=== PATIENT | female | born 1990 | race American Indian/Alaskan Native ===

== ENCOUNTER 2017-06-15 17:03 | Emergency (ER) | payer SELFPAY ==
[2017-06-15 17:42] VITALS: BP 122/63
[2017-06-15] MEDS ORDERED: MOTRIN PO ONE (20:03)
--- NOTE | 2017-06-15 20:23 | Emergency Department Report ---
ED Extremity Problem HPI - General Chief complaint: Extremity Problem,Nontraumatic Stated complaint: LEFT FOOT PAIN Time Seen by Provider: 06/15/17 19:38 Source: patient Mode of arrival: Ambulatory Limitations: No Limitations - History of Present Illness Initial comments: 27-year-old female past medical history obesity presents with complaint of 3 weeks of left-sided heel and ankle discomfort. Patient states she stands on her feet at work for prolonged periods of time. States that aching is worse at the end of the day. Denies any direct trauma below or inversion injury to left ankle. Describes pain that radiates from left heel to left ankle. Patient is ambulatory without assistance. Patient is awake alert and oriented 3 fully lucid. Adamantly denies any incident of injury over the last 3 weeks. Denies any changes on skin near her ankle. Denies any calf swelling control use or any previous history of DVT PE or recent travel. MD Complaint: extremity pain, extremity swelling Onset/Timin Location: left, lower extremity (left ankle) History of Same: Yes Severity scale (0 -10): 5 Quality: aching Consistency: intermittent Improves with: nothing - Related Data Previous Rx's Medication Instructions Recorded Last Taken Type Ibuprofen [Motrin] 600 mg PO Q8H PRN #15 tablet 06/15/17 Unknown Rx Allergies Allergy/AdvReac Type Severity Reaction Status Date / Time No Known Allergies Allergy Unverified 06/15/17 17:39 ED Review of Systems ROS: Stated complaint: LEFT FOOT PAIN Other details as noted in HPI Constitutional: denies: chills, fever Eyes: denies: eye pain, eye discharge, vision change ENT: denies: ear pain, throat pain Respiratory: denies: cough, shortness of breath, wheezing Cardiovascular: denies: chest pain, palpitations Endocrine: no symptoms reported Gastrointestinal: denies: abdominal pain, nausea, diarrhea Genitourinary: denies: urgency, dysuria, discharge Musculoskeletal: as per HPI. denies: back pain, joint swelling, arthralgia Skin: denies: rash, lesions Neurological: denies: headache, weakness, paresthesias Psychiatric: denies: anxiety, depression Hematological/Lymphatic: denies: easy bleeding, easy bruising ED Past Medical Hx - Past Medical History Previous Medical History?: No - Surgical History Past Surgical History?: No - Social History Smoking Status: Never Smoker Substance Use Type: None - Medications Home Medications: Home Medications Medication Instructions Recorded Confirmed Last Taken Type Ibuprofen [Motrin] 600 mg PO Q8H PRN #15 tablet 06/15/17 Unknown Rx ED Physical Exam - General Limitations: No Limitations General appearance: alert, in no apparent distress - Head Head exam: Present: atraumatic, normocephalic - Eye Eye exam: Present: normal appearance, PERRL, EOMI - ENT ENT exam: Present: mucous membranes moist - Neck Neck exam: Present: normal inspection - Respiratory Respiratory exam: Present: normal lung sounds bilaterally. Absent: respiratory distress - Cardiovascular Cardiovascular Exam: Present: regular rate, normal rhythm. Absent: systolic murmur, diastolic murmur, rubs, gallop - GI/Abdominal GI/Abdominal exam: Present: soft, normal bowel sounds - Extremities Exam Extremities exam: Present: normal inspection - Expanded Lower Extremity Exam Left Hip exam: Present: normal inspection, full ROM Upper Leg exam: Present: normal inspection, full ROM Knee exam: Present: normal inspection, full ROM Lower Leg exam: Present: normal inspection, full ROM Ankle exam: Present: normal inspection (no erythema and no clinical signs of cellulitis overlying ankle), full ROM (dorsi and plantarflexion clinically intact) Foot/Toe exam: Present: normal inspection, full ROM Neuro vascular tendon exam: Present: no vascular compromise (distal dorsalis pedis and posterior tibial pulses intact) Gait: Positive: observed and normal 1 - She states she has discomfort here - Back Exam Back exam: Present: normal inspection - Neurological Exam Neurological exam: Present: alert, oriented X3, CN II-XII intact, normal gait - Psychiatric Psychiatric exam: Present: normal affect, normal mood - Skin Skin exam: Present: warm, dry, intact, normal color. Absent: rash ED Course Vital Signs 06/15/17 06/15/17 17:39 20:35 Temperature 98.7 F Pulse Rate 55 L Respiratory 16 18 Rate Blood Pressure 122/63 O2 Sat by Pulse 100 Oximetry ED Medical Decision Making - Medical Decision Making A/P: Left ankle/heel pain/plantar fasciitis 1-Motrin when necessary 2-RICEtherapy, Caio wrap 3-x-ray shows some mild calcaneal spurring but no other abnormalities follow-up with podiatry, left lower extremity has good pulses and good sensation 4- I educated patient on signs and symptoms and management of plantar fasciitis Critical care attestation.: If time is entered above; I have spent that time in minutes in the direct care of this critically ill patient, excluding procedure time. ED Disposition Clinical Impression: Plantar fasciitis of left foot Left ankle pain Qualifiers: Chronicity: acute Qualified Code(s): M25.572 - Pain in left ankle and joints of left foot Disposition: DC- TO HOME OR SELFCARE Is pt being admited?: No Does the pt Need Aspirin: No Condition: Stable Instructions: RICE Therapy (ED), Plantar Fasciitis (ED) Prescriptions: Ibuprofen [Motrin] 600 mg PO Q8H PRN #15 tablet PRN Reason: Pain Referrals: [facility] [Provider Group] - 3-5 Days TREVOR HUSSEIN DPM [Staff Physician] - 3-5 Days Forms: Accompanied Note, Work/School Release Form(ED) Time of Disposition: 21:06
--- NOTE | 2017-06-15 20:58 | XRay Report ---
FINAL REPORT EXAM: XR ANKLE 3+V LT HISTORY: left ankle pain 3 weeks TECHNIQUE: Three views of the left ankle PRIORS: None. FINDINGS: There is no evidence of acute fracture. There is no evidence of joint dislocation. There is some mild dorsal spurring at the talonavicular joint. IMPRESSION: There is no acute abnormality identified.
== END 2017-06-15 21:20 | disposition home or self-care (01) ==
LOC: ED 17:03
DX: M72.2 Plantar fascial fibromatosis (principal)
CPT/HCPCS: 99283